=== PATIENT | female | born 1955 | race Caucasian/White ===

== ENCOUNTER → 2018-01-12 | Outpatient (CLI) | payer OTHER | END | disposition home or self-care (01) | LOC: CFH 09:54 | PROVIDERS: ATTEND Family Medicine | DX: Z12.31 Encounter for screening mammogram for malignant neoplasm of breast (principal) | CPT/HCPCS: 77063; 77067 ==

== ENCOUNTER 2019-11-17 16:20 | Emergency (ER) | payer OTHER ==
[~2019-11-17] VITALS: Ht 162.6 cm; Wt 78.0 kg
--- NOTE | 2019-11-17 16:42 | NUR ---
TRAFFIC CIRCUIT ENGINEER: CODE NEURO CALLED AT [id number]
--- NOTE | 2019-11-17 16:42 | NUR ---
REDUCTION PLANT SUPERVISOR: PT TO CT SCAN VIA RADHA
--- NOTE | 2019-11-17 16:44 | NUR ---
Code Neuro @1631 Called Neurology @1634 Neurology called back @ 1642 Addendum: 11/17/19 at 1646 by KENNETH Neurology talked with Junior
[2019-11-17] MEDS ORDERED: SODIUM CHLORIDE FLUSH 10ML SYR IVF ONE (17:00)
--- NOTE | 2019-11-17 17:12 | NUR ---
TASK RN: PT RESTING IN [facility] AT THIS TIME AFTER RETURNING FROM CT. NEURO TELEMONITOR IN PT ROOM AT BS. LAB AT BS AT THIS TIME. PT AND SPOUSE EDUCATED ON ER PROCESS AND POC AND VERBALIZES UNDERSTANDING. CALL LIGHT IS WITHIN REACH.
--- NOTE | 2019-11-17 17:12 | NUR ---
PIV X [address], NOW BACK TO . PT REPORTS HER SPEECH HAS RETURNED TO NORMAL AND HER R LEG IS NO LONGER TINGLING. TELE NEURO IN EXAMINING PT. WILL REPORT TO PRIMARY RN
--- NOTE | 2019-11-17 17:19 | NUR ---
TASK RN: PT IN GOWN IN [facility]. PT ATTACHED TO VS AND CARDIAC MONITORS. NIHSS PERFORMED. DR GO AT BS WITH PT FOR HISTORY AND ASSESSMENT AT THIS TIME. VSS.
[2019-11-17 17:20] VITALS: BP 177/91
[2019-11-17] MEDS ORDERED: OMNIPAQUE 350 MG/ML, 75ML BOTTLE ONE (17:22)
[2019-11-17] MEDS ORDERED: ACETAMINOPHEN 500 MG TABLET ONE (17:28)
[2019-11-17 17:30] LABS: BASOPHILS # (AUTO) 0.04 x10^3/uL (0-0.1); BASOPHILS % (AUTO) 1 % (0-1); EOSINOPHILS # (AUTO) 0.08 x10^3/uL (0-0.4); EOSINOPHILS % (AUTO) 1 % (1-7); LYMPHOCYTES # (AUTO) 2.28 x10^3/uL (1-3.4); LYMPHOCYTES % (AUTO) 38 % (22-44); MD NO; MEAN CORPUSCULAR HEMOGLOBIN 32.9 pg (27.0-34.8); MEAN CORPUSCULAR HGB CONC 33.9 g/dL (32.4-35.8); MEAN PLATELET VOLUME 7.9 fL (7.4-10.4); MONOCYTES # (AUTO) 0.58 x10^3/uL (0.2-0.8); MONOCYTES % (AUTO) 10 % (2-9); NEUTROPHILS # (AUTO) 3.09 x10^3/uL (1.8-6.8); NEUTROPHILS % (AUTO) 51 % (42-75); PLATELET COUNT 209 x10^3/uL (130-400); RED BLOOD COUNT 4.52 x10^6/uL (3.82-5.3); RED CELL DISTRIBUTION WIDTH 13.4 % (9.6-15.2)
[2019-11-17] MEDS ORDERED: ACETAMINOPHEN 500 MG TABLET PO ONE (17:30)
--- NOTE | 2019-11-17 17:32 | NUR ---
TASK RN: STRICT NPO ORDERS D/JONY BY DR GO. PT MEDICATED PER JUN.
[2019-11-17 17:36] LABS: INTERNATIONAL NORMALIZED RATIO 0.98 (0.93-1.1); PROTHROMBIN TIME 10.4 Seconds (9.6-11.5)
[2019-11-17 17:37] LABS: ALBUMIN 3.4 g/dL (3.4-5.0); ANION GAP 8 mmol/L (5-15); CALCIUM 7.8 mg/dL (8.5-10.1); CHLORIDE 106 mmol/L (98-107)
[2019-11-17 17:41] LABS: TROPONIN I < 0.015 ng/mL (0.000-0.045)
== END 2019-11-17 18:39 | disposition home or self-care (01) ==
LOC: ED 18:07
DX: G43.409 Hemiplegic migraine, not intractable, without status migrainosus (principal); I12.9 Hypertensive chronic kidney disease with stage 1 through stage 4 chronic kidney disease, or unspecified chronic kidney disease; N18.2 Chronic kidney disease, stage 2 (mild); R94.31 Abnormal electrocardiogram [ECG] [EKG]
CPT/HCPCS: 70450; 70496; 70498; 80047; 80048; 82040; 82962; 84484; 85025; 85610; 85730; 93005; 99285; Q9967

== ENCOUNTER → 2020-01-17 | Outpatient (CLI) | payer OTHER | END | disposition home or self-care (01) | LOC: RAD 10:12 | PROVIDERS: ATTEND Internal Medicine Nephrology | DX: N28.1 Cyst of kidney, acquired (principal); I12.9 Hypertensive chronic kidney disease with stage 1 through stage 4 chronic kidney disease, or unspecified chronic kidney disease; N18.3 Chronic kidney disease, stage 3 (moderate); R80.9 Proteinuria, unspecified; E03.9 Hypothyroidism, unspecified; D64.9 Anemia, unspecified; D61.9 Aplastic anemia, unspecified; E83.52 Hypercalcemia; I63.9 Cerebral infarction, unspecified; Z94.81 Bone marrow transplant status | CPT/HCPCS: 76770; 78070; A9500 ==

== ENCOUNTER → 2020-02-08 | Outpatient (CLI) | payer OTHER | END | disposition home or self-care (01) | LOC: CFH 10:29 | PROVIDERS: ATTEND Nurse Practitioner | DX: M81.0 Age-related osteoporosis without current pathological fracture (principal); E04.1 Nontoxic single thyroid nodule; E83.52 Hypercalcemia; N18.30 Chronic kidney disease, stage 3 unspecified; I12.9 Hypertensive chronic kidney disease with stage 1 through stage 4 chronic kidney disease, or unspecified chronic kidney disease; I63.9 Cerebral infarction, unspecified; E03.9 Hypothyroidism, unspecified; R80.9 Proteinuria, unspecified; D64.9 Anemia, unspecified; D61.9 Aplastic anemia, unspecified; Z94.81 Bone marrow transplant status | CPT/HCPCS: 76536; 77080 ==

== ENCOUNTER → 2020-02-27 | Outpatient (CLI) | payer OTHER ==
[~2020-02-27] MED LIST: LIDOCAINE 1%, 20ML ONE
== END | disposition home or self-care (01) ==
LOC: RAD 12:29
PROVIDERS: ATTEND Surgery
DX: E04.1 Nontoxic single thyroid nodule (principal)
CPT/HCPCS: 10005; 88172; 88173; 88177; J3490

== ENCOUNTER → 2020-04-16 | Outpatient (CLI) | payer OTHER ==
[~2020-04-16] MED LIST changes: +Acetaminophen PO; +CHOL10003 PO; +FLUT9.9S NS; +LEVO88TA4 PO; -LIDOCAINE 1%, 20ML ONE; +LISI40TA PO; +SODI325T PO
[2020-04-16 16:01] LABS: ALANINE AMINOTRANSFERASE 29 U/L (12-78); ALBUMIN 3.9 g/dL (3.4-5.0); ANION GAP 5 mmol/L (5-15); CHLORIDE 111 mmol/L (98-107); CREATININE 1.46 mg/dL (0.55-1.02)
[2020-04-16 16:03] LABS: ALKALINE PHOSPHATASE 131 U/L (45-117); BILIRUBIN,TOTAL 0.4 mg/dL (0.2-1.0); TOTAL PROTEIN 7.2 g/dL (6.4-8.2)
== END | disposition home or self-care (01) ==
LOC: STAR 14:32
PROVIDERS: ATTEND Surgery
DX: Z01.812 Encounter for preprocedural laboratory examination (principal); Z20.828 Contact with and (suspected) exposure to other viral communicable diseases
CPT/HCPCS: 80053; 86800; 87635; 93005

== ENCOUNTER 2020-04-22 06:24 | Day surgery (SDC) | payer OTHER ==
[2020-04-16 15:22] VITALS: BP 166/90
[~2020-04-22] VITALS: Ht 163.8 cm; Wt 71.2 kg
[2020-04-22 06:53] VITALS: BP 166/90
[2020-04-22] MEDS ORDERED: CHLORHEXIDINE 15 ML UDC MM ONE (07:00)
[2020-04-22] MEDS ORDERED: LACTATED RINGERS 1,000 ML IV SCH (07:00)
[2020-04-22] MEDS ORDERED: ACET-1600 PO (07:11)
[2020-04-22] MEDS ORDERED: FENTANYL PF 250 MCG/5ML ONE (08:11)
[2020-04-22] MEDS ORDERED: MIDAZOLAM 1 MG/ML, 2ML ONE (08:11)
[2020-04-22] MEDS ORDERED: SUCCINYLCHOLINE 20 MG/ML, 10ML ONE (10:00)
[2020-04-22] MEDS ORDERED: ONDANSETRON 2MG/ML, 2ML ONE ×2 (10:00→11:30)
[2020-04-22] MEDS ORDERED: PROPOFOL 10 MG/ML, 20ML ONE (10:00)
[2020-04-22] MEDS ORDERED: DEXAMETHASONE 4 MG/ML, 1ML ONE (10:00)
[2020-04-22] MEDS ORDERED: SUGAMMADEX 200 MG/2 ML IVPush ONE (10:00)
[2020-04-22] MEDS ORDERED: CEFAZOLIN 1,000 MG ONE (10:00)
[2020-04-22] MEDS ORDERED: ROCURONIUM 10 MG/ML,10ML ONE (10:00)
[2020-04-22 11:08] LABS: 10MIN %DROP IOPTH 72 %; 5MIN %DROP IOPTH 56 %; IOPTH BASELINE 135 pg/mL
[2020-04-22] MEDS ORDERED: HYDROmorphone 1 MG/ML, 1ML INJ IV PRN (11:30)
[2020-04-22] MEDS ORDERED: hydrALAzine 20 MG/ML, 1ML ONE (11:30)
[2020-04-22] MEDS ORDERED: ALBUTEROL SULFATE 2.5 MG/3 ML NPPB PRN (11:30)
[2020-04-22] MEDS ORDERED: OXYcodone 5 MG/5 ML ORAL.SOL UDC PO PRN (11:30)
[2020-04-22] MEDS ORDERED: MEPERIDINE/PF 25MG/0.5ML IVPush PRN (11:30)
[2020-04-22] MEDS ORDERED: ONDANSETRON 2MG/ML, 2ML IVPush PRN (11:30)
[2020-04-22] MEDS ORDERED: FENTANYL PF 100 MCG/2ML IV PRN (11:30)
[2020-04-22] MEDS ORDERED: KETOROLAC 30 MG/1 ML IV PRN (11:30)
[2020-04-22] MEDS ORDERED: PROMETHAZINE 25 MG/ML, 1ML IV PRN (11:30)
[2020-04-22] MEDS ORDERED: DIAZEPAM 5 MG/ML, 2ML IV PRN ×2 (11:30)
[2020-04-22] MEDS ORDERED: METOCLOPRAMIDE 5 MG/ML, 2ML IV PRN (11:30)
[2020-04-22] MEDS ORDERED: hydrALAzine 20 MG/ML, 1ML IV PRN (11:30)
[2020-04-22] MEDS ORDERED: LABETALOL 5MG/ML, 20ML IV PRN (11:30)
[2020-04-22] MEDS ORDERED: OXYcodone 5 MG/5 ML ORAL.SOL UDC ONE (11:45)
[2020-04-22] MEDS ORDERED: FENTANYL PF 100 MCG/2ML ONE (11:45)
[2020-04-22] MEDS ORDERED: PROMETHAZINE 25 MG/ML, 1ML ONE (12:06)
== END 2020-04-22 19:10 | disposition home or self-care (01) ==
LOC: OR 06:24 → OUT 19:10
PROVIDERS: ATTEND Surgery
DX: D35.1 Benign neoplasm of parathyroid gland (principal); C73 Malignant neoplasm of thyroid gland; I10 Essential (primary) hypertension; E78.5 Hyperlipidemia, unspecified; M81.0 Age-related osteoporosis without current pathological fracture; Z98.890 Other specified postprocedural states; Z79.899 Other long term (current) drug therapy; Z88.8 Allergy status to other drugs, medicaments and biological substances; Z88.1 Allergy status to other antibiotic agents; Z91.041 Radiographic dye allergy status; Z91.013 Allergy to seafood; Z90.710 Acquired absence of both cervix and uterus; Z87.891 Personal history of nicotine dependence; Z82.49 Family history of ischemic heart disease and other diseases of the circulatory system
CPT/HCPCS: 36415; 60220; 60500; 82310; 83970; 88305; 88307; 88331; C1760; J0330; J0360; J0690; J1100; J2250; J2405; J2550; J2704; J3010; J7120

== ENCOUNTER → 2020-05-22 | Outpatient (CLI) | payer OTHER ==
[~2020-05-22] MED LIST changes: +ACET-1600 PO
== END | disposition home or self-care (01) ==
LOC: CFH 10:34
PROVIDERS: ATTEND Family Medicine
DX: Z12.31 Encounter for screening mammogram for malignant neoplasm of breast (principal)
CPT/HCPCS: 77063; 77067

== ENCOUNTER → 2020-06-05 | Outpatient (CLI) | payer OTHER ==
[~2020-06-05] MED LIST changes: -LISI40TA PO; +LISI40TA9 PO
== END | disposition home or self-care (01) ==
LOC: RAD 09:19
PROVIDERS: ATTEND Internal Medicine Nephrology
DX: I63.9 Cerebral infarction, unspecified (principal); D75.1 Secondary polycythemia; E83.52 Hypercalcemia; C73 Malignant neoplasm of thyroid gland; N18.30 Chronic kidney disease, stage 3 unspecified; I12.9 Hypertensive chronic kidney disease with stage 1 through stage 4 chronic kidney disease, or unspecified chronic kidney disease; E03.9 Hypothyroidism, unspecified; R80.9 Proteinuria, unspecified; D35.1 Benign neoplasm of parathyroid gland
CPT/HCPCS: 70450; 70551

== ENCOUNTER 2020-08-28 08:14 | Outpatient (CLI) | payer OTHER ==
[2020-08-28] MEDS ORDERED: GADOTERATE 10 MMOL/20ML SYR ONE (14:22)
== END 2020-08-28 23:59 | disposition home or self-care (01) ==
LOC: RAD 08:14
PROVIDERS: ATTEND Family Medicine
DX: R90.82 White matter disease, unspecified (principal)
CPT/HCPCS: 70553; A9575

== ENCOUNTER → 2020-09-04 | Outpatient (CLI) | payer OTHER | END | disposition home or self-care (01) | LOC: RAD 07:42 | PROVIDERS: ATTEND Physician Assistant Medical | DX: C73 Malignant neoplasm of thyroid gland (principal); E89.0 Postprocedural hypothyroidism | CPT/HCPCS: 76536 ==